=== PATIENT | female | born 1965 | race Caucasian/White ===

== ENCOUNTER 2019-10-24 12:26 | Outpatient (CLI) | payer BC, SELFPAY ==
--- NOTE | ~2019-10-24 | MMUS_ITS ---
EXAMINATION: MM diagnostic jaiden RT w deven, US breast RT limited HISTORY: Six-month follow-up for probably benign right breast masses TECHNIQUE: Craniocaudal, mediolateral, and mediolateral oblique 3-D tomosynthesis images of the right breast were performed and synthetic 2-D images were generated. Spot compression views are also obtai joellen. CAD analysis was submitted and interpreted. High resolution limited right breast ultrasound was performed. COMPARISON: 02/28/2019, 03/02/2018, 02/28/2018, 02/23/2018, 02/19/2017 BREAST PARENCHYMAL COMPOSITION: There are scattered areas of fibroglandular density. FINDINGS: MAMMOGRAPHIC FINDINGS: The previously described mass of the outer breast is no longer identified. There is no evidence of abreu spicious mass, calcification, or architectural distortion to suggest malignancy. There has been no suspicious interval change. ULTRASOUND: The previously described cyst at the 9:00 location six cm from the nipple has decreased in size, kamala uring 5 mm, and now contains internal debris. There is a stable 6 mm x 3 mm oval, circumscribed, para llel, hypoechoic mass with central echogenicity at the 9:00 location 4 cm from the nipple. A 3 mm rou nd, circumscribed, hypoechoic mass with posterior enhancement and no internal vascularity is seen at the 9:00 location 4 cm from the nipple which has slightly decreased in size. There is a 5 mm x 3 mm o shayne, circumscribed, parallel, hypoechoic mass with no posterior features or internal vascularity at t he 9:00 location 8 cm from the nipple. IMPRESSION: 1. Probably benign right breast masses. 2. Recommend 6 month follow-up right diagnostic mammogram and ultrasound. BI-RADS category 3, probably benign findings. Reviewed, dictated and finalized at location A. IMPRESSION: 1. Probably benign right breast masses. 2. Recommend 6 month follow-up right diagnostic mammogram and ultrasound. BI-RADS category 3, probably benign findings.
== END 2019-10-24 12:27 | disposition home or self-care (01) ==
LOC: ANHIMG 12:28
PROVIDERS: PCP Family Medicine; Visit Provider Obstetrics & Gynecology
DX: R92.8 Other abnormal and inconclusive findings on diagnostic imaging of breast (principal)
CPT/HCPCS: 76642; 77061; 77065; G0279

== ENCOUNTER 2020-03-22 08:55 | Outpatient (CLI) | payer BC, SELFPAY ==
--- NOTE | ~2020-03-22 | MM_ITS ---
EXAMINATION: MM screening jaiden BI w deven HISTORY: Screening TECHNIQUE: Craniocaudal and mediolateral oblique 3-D tomosynthesis images were obtained and synthetic 2-D images were generated. CAD analysis was submitted and interpreted. COMPARISON: Comparison to multiple prior studies sequentially, with oldest reviewed study dated 01/2017. BREAST PARENCHYMAL COMPOSITION: The breasts are heterogeneously dense, which may obscure small masses . FINDINGS: There is no evidence of suspicious mass, calcification, or architectural distortion to sugg est malignancy in either breast. There has been no suspicious interval change. IMPRESSION: 1. No mammographic evidence of malignancy. 2. Recommend routine screening mammography in one year. BI-RADS Category 1: Negative Reviewed, dictated and finalized at location A.
== END 2020-03-22 08:56 | disposition home or self-care (01) ==
LOC: ANHIMG 08:57
PROVIDERS: PCP Family Medicine; Visit Provider Obstetrics & Gynecology
DX: Z12.31 Encounter for screening mammogram for malignant neoplasm of breast (principal)
CPT/HCPCS: 77063; 77067

== ENCOUNTER 2021-03-24 07:40 | Outpatient (CLI) | payer BC, SELFPAY ==
--- NOTE | ~2021-03-24 | MM_ITS ---
EXAMINATION: MM screening jaiden BI w deven HISTORY: Screening TECHNIQUE: Craniocaudal and mediolateral oblique 3-D tomosynthesis images were obtained and synthetic 2-D images were generated. CAD analysis was submitted and interpreted. COMPARISON: Comparison to multiple prior studies sequentially, with oldest reviewed study dated 02/23. BREAST PARENCHYMAL COMPOSITION: The breasts are heterogenously dense, which may obscure small masses. FINDINGS: There are developing asymmetries in the mid outer aspect of the right breast and lower cent ral aspect of the left breast. There are punctate associated calcifications in the left breast asymme try. IMPRESSION: 1. Developing bilateral breast asymmetries and left breast calcifications. 2. Additional mammographic views and possible breast ultrasound are recommended. BI-RADS Category 0: Incomplete: Needs additional imaging evaluation. Reviewed, dictated and finalized at location A. IMPRESSION: 1. Developing bilateral breast asymmetries and left breast calcifications. 2. Additional mammographic views and possible breast ultrasound are recommended . BI-RADS Category 0: Incomplete: Needs additional imaging evaluation.
== END 2021-03-24 07:41 | disposition home or self-care (01) ==
LOC: ANHIMG 07:41
PROVIDERS: PCP Family Medicine; Visit Provider Obstetrics & Gynecology
DX: Z12.31 Encounter for screening mammogram for malignant neoplasm of breast (principal); R92.8 Other abnormal and inconclusive findings on diagnostic imaging of breast
CPT/HCPCS: 77063; 77067

== ENCOUNTER 2021-04-11 11:46 | Outpatient (CLI) | payer BC, SELFPAY ==
--- NOTE | ~2021-04-11 | MMUS_ITS ---
EXAMINATION: MM diagnostic jadien BI w deven, US breast BI complete HISTORY: Reality. Are there is an IV in the is a moderate right renal TECHNIQUE: Additional 3-D tomosynthesis images of both breasts were performed and synthetic 2-D image s were generated. Magnification views of left breast in multiple projections. CAD analysis was submit girish and interpreted. High resolution breast ultrasound was performed. COMPARISON: Serial mammographic examinations dating back to 01/23/2015 FINDINGS: MAMMOGRAPHIC FINDINGS: There is asymmetric density in the posterior lower mid left breast with some subtle indeterminate gra nular appearing microcalcifications. Stereotactic biopsy is recommended. There is somewhat nodular fibroglandular stroma both breasts which may obscure small masses. Bilatera l complete breast ultrasound examination was performed. ULTRASOUND: Right breast: 11:00 2 cm from nipple: 3.5 x 2.8 x 3.8 mm cyst 9:00 6 cm from nipple: Circumscribed oval 0.2 x 3.6 x 5.0 mm heterogeneous solid lesion without suspi cious shadowing, likely benign Left breast: 5.7 x 3.1 x 4.6 mm cyst IMPRESSION: 1. Indeterminate amorphous granular microcalcifications in the lower central left breast associated w ith some asymmetric soft tissue density. 2. Stereotactic biopsy of lower central left breast microcalcifications is recommended. BI-RADS category 4, suspicious findings. Dr. Wilson telephoned the report and left stereotactic biopsy recommendation on 04/11/2021 at [address] Benitez's medical assistant instructor Mishel's voicemail Reviewed, dictated and finalized at location A. IMPRESSION: 1. Indeterminate amorphous granular microcalcifications in the lower central le ft breast associated with some asymmetric soft tissue density. 2. Stereotactic biopsy of lower central left breast microcalcifications is sofía mmended. BI-RADS category 4, suspicious findings. Dr. Wilson telephoned the report and left stereotactic biopsy recommendation on at [address] Benitez's medical assistant instructor Mishel's voicemail
== END 2021-04-11 11:47 | disposition home or self-care (01) ==
LOC: ANHIMG 11:52
PROVIDERS: PCP Family Medicine; Visit Provider Obstetrics & Gynecology
DX: R92.8 Other abnormal and inconclusive findings on diagnostic imaging of breast (principal)
CPT/HCPCS: 76641; 77062; 77066; G0279

== ENCOUNTER 2021-05-01 10:49 | Outpatient (CLI) | payer BC, SELFPAY ==
--- NOTE | ~2021-05-01 | MM_ITS ---
MM consultation DATE: 05/01/2021 12:27 INDICATION: Requested stereotactic biopsy of subtle indeterminate granular microcalcifications, poste rior lower mid left breast FINDINGS: The patient was positioned on the stereotactic biopsy table and efforts were undertaken to attempt a stereotactic biopsy in mediolateral as well as caudal cranial projections. However, the mason rocalcifications were to posterior and superficial for access from either approach. The patient was informed that the examination was not technically possible due to position of the mason rocalcifications. The alternative of preoperative mammographic localization and surgical excision was discussed with the patient. IMPRESSION: Microcalcifications to posterior and superficial for stereotactic biopsy; consider surgic al excisional biopsy with preoperative mammographic localization Reviewed, dictated and finalized at Location A. Reviewed, dictated and finalized at location A. OLOGICAL PHYSIOTHERAPIST IMPRESSION: Microcalcifications to posterior and superficial for stereotactic b iopsy; consider surgical excisional biopsy with preoperative mammographic local ization
== END 2021-05-01 10:50 | disposition home or self-care (01) ==
PROVIDERS: PCP Family Medicine; Visit Provider Obstetrics & Gynecology
DX: R92.1 Mammographic calcification found on diagnostic imaging of breast (principal)
CPT/HCPCS: 99199

== ENCOUNTER 2021-08-15 09:04 | Outpatient (CLI) | payer OTHER, SELFPAY ==
--- NOTE | 2021-08-15 09:00 | ECG_ITS ---
Measurements Intervals Andrews Rate: 64 P: 58 TX: 175 QRS: 2 QRSD: 86 T: 40 QT: 394 QTc: 408 Interpretive Statements SINUS RHYTHM LOW VOLTAGE IN LIMB LEADS NONSPECIFIC T-WAVE ABNORMALITY ABNORMAL ECG NO PREVIOUS ECG AVAILABLE FOR COMPARISON Electronically Signed On 08-15-2021 10:37:21 ACCOUNT DIRECTOR by Francisco J Payan M.D.
== END 2021-08-15 09:05 | disposition home or self-care (01) ==
LOC: ANHSURGERY 09:09
PROVIDERS: PCP Family Medicine; Visit Provider Surgery Plastic and Reconstructive Surgery
DX: E78.5 Hyperlipidemia, unspecified (principal); Z01.818 Encounter for other preprocedural examination
CPT/HCPCS: 93005

== ENCOUNTER 2021-08-21 01:14 | Day surgery (SDC) | payer OTHER, SELFPAY ==
[2021-08-13 11:38] VITALS: BMI 24.3
--- NOTE | 2021-08-13 11:49 | PC.NURSE ---
Report to the Outpatient Waiting Room, entrance under the green pavilion located off [facility], at time 6:00 on date 08/21/21. OR Time: 7:30. - You and your visitor will be asked a series of questions to screen for COVID 19 for your protection. - A mask is required within the hospital. One visitor will be allowed to accompany the patient into the hospital. Patients visitor will be instructed to remain with patient at all times or leave the building. We will allow the visitor to come back to the postoperative area when patient is ready. Preoperative COVID Testing Requirements: TO BRING COPY OF CARD No COVID Test needed if: (proof is required; if not received patient will have Rapid Test prior to entry) - Patient has received COVID Vaccine at least 14 days prior to procedure date or - Patient has positive COVID test result within last 90 days of surgery date. COVID Test needed if above criteria is not met Patients may have clear liquids (water, carbonated beverages, clear teas, apple juice) until 3 hours prior to surgery (4:30) with a maximum of 20 ounces. - No food from midnight until time of surgery Take the following medications with a SIP of water the morning of surgery: NONE Medications to discontinue per physician: VITAMINS/SUPPLEMENTS Date to take last dose: 08/17/21 Please no make-up, nail algerian, hairspray, perfume, deodorant, or body powder the day of surgery. No jewelry (including any body piercings) or valuables the day of surgery, leave them at home. Please take a shower or bath the night before, or the morning of, surgery with an antibacterial soap. Wear comfortable, loose fitting clothing. - Jewelry must be removed prior to entering the operating room. Rings and piercings that are not removed may be cut off. - The hospital will not accept responsibility for valuables. - Please leave all valuables, including medications, at home the day of surgery. If you are going home after surgery, a licensed truss driver helper must drive you home. - NO public transportation without another adult. - We recommend that an adult stay with you for 24 hours following discharge. - We also recommend that you do not drive, make important decision, drink alcoholic beverages, or take any drugs that were not prescribed by your health care provider for at least 24 hours after your discharge time. Follow any additional instructions given to you from your surgeon. Telephone instructions given to FINN BAINS and asked if any additional questions and then verbalized understanding. Patient advised to call surgeon office or pre surgery nurse liaison [phone] if any additional questions.
--- NOTE | 2021-08-20 12:31 | WPDANESEPPF ---
Anes - Initial Pre Proc Eval Procedure: Operation Date: 08/21/21 07:30 Proposed Procedures p Bilateral Breast Augmentation - Leonard Roldan MD s Bilateral Breast Mastopexy - Leonard Roldan MD Date/Time: 08/20/21 12:31 Surgeon: Leonard Roldan MD Pre Op Diagnosis: micromastia, breast ptosis Patient Data Age: 55 Gender: F Height: 1.59 m Weight: 61.24 kg Allergies Allergy/AdvReac Type Severity Reaction Status Date / Time No Known Allergies Allergy Mild Verified 08/13/21 11:36 Home Medications Medication Instructions Recorded Confirmed Type multivitamin with minerals 1 tablet PO DAILY 12/08/19 08/21/21 History oxybutynin chloride 10 mg 10 mg PO DAILY 12/08/19 08/21/21 History tablet,extended release 24 hr omeprazole 20 mg capsule,delayed 20 mg PO DAILY PRN #90 cap 01/05/20 08/21/21 Rx release atorvastatin 10 mg tablet See Rx Instructions .ROUTE 02/20/21 08/21/21 Rx .COMPLEX #90 tablet topiramate 25 mg tablet See Rx Instructions .ROUTE 02/20/21 08/21/21 Rx .COMPLEX #180 tablet carisoprodol 350 mg tablet 350 mg PO TID PRN #21 tablet 07/28/21 08/21/21 Rx docusate sodium 100 mg capsule 100 mg PO DAILY #14 cap 07/28/21 08/21/21 Rx ondansetron HCl 4 mg tablet 4 mg PO Q8H #21 tablet 07/28/21 08/21/21 Rx oxycodone-acetaminophen 5 mg-325 1 tablet PO Q6H PRN #30 tablet 07/28/21 08/21/21 Rx mg tablet Patient hx anesthesia problems: none Family hx anesthesia problems: none Results Review: All pre-operative results and documents have been reviewed as part of the pre-operative evaluation. [facility] Past Medical History Medical History delivery delivered GERD (gastroesophageal reflux disease) Hyperlipidemia Hypothyroidism Smoker Surgical History Surgical History H/O: hysterectomy Hx of section Family History Family History Father Hypertension Family history of elevated blood lipids Mother Family history of elevated blood lipids Family history of Alzheimer's disease Grandparent Family history of malignant neoplasm Other No family history of malignant neoplasm Social History Social History Smoking packs per day: 1 Smoking cigarettes per day: 20.0 Years smoked: 10 Smoking pack-years: 10.00 Smoking status: Current some day smoker Tobacco type: cigarettes Smoking end date: 06/14/01 Alcohol intake: current Drinks per week: 6 Alcohol use details: ON WEEKENDS Substance use: never Substance use type: does not use Living arrangements: with family Spiritual care concerns: No Anes - Eval Final PreProcedure Day of Procedure 08/20/21 12:31 Patient weight: overweight Heart: regular rate and rhythm Lungs: clear to auscultation and normal air movement Airway: Mallampati scale class II Neurological: alert and oriented Last oral intake: >/= 8 hours ASA classification: II Emergent: no Anesthetic plan: proceed Anesthesia type and monitoring: general LMA Results Review: All pre-operative results and documents have been reviewed as part of the pre-operative evaluation. Informed Consent: The patient's anesthetic plan and its attendant risks and benefits were discussed with the patient/family/POA. Questions were solicited and answers provided to the satisfaction of the patient/family/POA.
[2021-08-21] VITALS (8 sets, daily range): BP systolic 109–131; BP diastolic 62–82; PULSE 62–98; RESP 10–22; TEMP 36.4; O2SAT 94–100
[2021-08-21] MEDS: LACTATED RINGERS 1,000 ML 30 ML IV CONT ×3 (06:20→10:31)
[2021-08-21 06:47] LABS: Urine Cotinine NEGATIVE
--- NOTE | 2021-08-21 07:16 | WPDHPUPDATE1 ---
History and Physical Update Update Date/Time: 08/21/21 07:16 History and Physical has been reviewed, including an updated exam of the patient. There are NO changes in the patient's condition. Risks, benefits, and alternatives have been discussed and questions answered. Patient agrees to proceed with procedure.
--- NOTE | 2021-08-21 07:16 | W.PM.PROC2 ---
Procedure Note - Detailed Date of Procedure 08/21/21 Pre-op Diagnosis micromastia, breast ptosis Post-op Diagnosis Same Procedure Performed Bilateral augmentation mastopexy Surgeon Leonard Roldan MD Anesthesia General Findings Inverted T Superior Pedicle Bilateral Grisel Mccarthy SoftTouch 415cc Right REF# [id number] SN [id number] Left REF# [id number] SN [id number] Description of Procedure She is here today for bilateral breast augmentation mastopexy. Previously and again today the risks, benefits, alternatives were discussed in extensive detail. I wanted her to be very realistic about the risks involved as well as expectations. We discussed aftercare and what to monitor for. Made sure answered all of her questions to her satisfaction today and consent was obtained. Marked in the preoperative holding area with their verification. The patient was taken to the operating room placed supine on the operating table. Anesthesia was provided by anesthesiology. A surgical time-out was taken. We cleansed the skin and 1% lidocaine and 0.25% Marcaine with epinephrine was used anesthetize as a field block. She was prepped and draped in a standard sterile fashion. Tegaderm nipple Pope were placed. A 15 blade used to make an incision just superior to the inframammary fold leaving a cusp of de-epithelized tissue at the t junction. Dissection was continued until the chest wall as identified. I incised the pectoralis major along its inferior border and completely released the inferior border leaving the medial border intact. I created a subpectoral pocket in the appropriate dimensions based on our preoperative planning for the implant. I then copiously irrigated with saline solution and verified a strict hemostasis. Next the use a triple antibiotic and Betadine containing solution to irrigate the pocket. I washed my gloves with the triple antibiotic and Betadine solution. We washed the implant immediately upon opening it with this solution and only opened it when we needed it. I used implant funnel and no-touch technique. The implant was introduced into the pocket using the funnel. Having verified positioning of the implant this was closed using 2-0 Vicryl. I tailor tacked the breast into position. Placed her in a sitting position. Verified the nipple-areolar location based on preoperative planning as well as intraoperative observations and measurements in full agreement. She was placed supine. I de-epithelialized the pedicle. I then removed the inferior central portion of the breast need making sure the implant was well protected. I elevated medial and lateral tissue flaps as well for planned closure. I closed along the IMF with 2-0 Stratafix. Along the vertical with 2-0 PDS. I closed around the Manav with 3-0 strata fix. 3-0 Monocryl along the vertical. 3-0 Stratafix along the IMF. I finally closed everything with running subcuticular 4-0 Monocryl and tissue glue. Fluffs and surgical bra were placed. Estimated Blood Loss 30 Drains No Packing No Pathology None sent Complications No immediate complications Condition Stable Disposition PACU
[2021-08-21] MEDS: TRANEXAMIC ACID 1,000MG/ISO100 1,000 MG/100 ML BAG 200 MG IVPB (07:30)
[2021-08-21] MEDS: LIDO 1%/EPINEPHRINE 1:100,000 50 ML VIAL 30 ML INFILTRATE (07:39)
[2021-08-21] MEDS: BUPIVACAINE HCL 0.25% PF 30 ML VIAL INFILTRATE (07:39)
[2021-08-21] MEDS: ceFAZolin 2 GM/D5W 50 ML 2 GM/50 ML BAG IVPB (07:40)
--- NOTE | 2021-08-21 08:38 | SUR.OPER ---
IMPLANTS FROM 'S OFFICE STOCK [facility] SoftTouch Breast Implant Smooth Round Full Profile LEFT: SSF-[id number] EXP: 10-14-2025 SN: [id number] RIGHT: [id number] EXP: 05-21-2026 SN: [id number]
--- NOTE | 2021-08-21 10:18 | SUR.PHASEI ---
1018: simple mask removed.
[2021-08-21] MEDS: fentaNYL CITRATE INJ (*CRX) 100 MCG/2 ML VIAL 25 MCG IV PUSH ×3 (10:31→10:59)
== END 2021-08-21 12:08 | disposition home or self-care (01) ==
PROVIDERS: PCP Family Medicine; Visit Provider Surgery Plastic and Reconstructive Surgery
PROC: (CPT 19316; principal; 2021-08-21 07:30)
PROC: (CPT 19316; 2021-08-21 07:30)
DX: Z41.1 Encounter for cosmetic surgery (principal); N64.82 Hypoplasia of breast; N64.81 Ptosis of breast; K21.9 Gastro-esophageal reflux disease without esophagitis; E78.5 Hyperlipidemia, unspecified; E03.9 Hypothyroidism, unspecified; Z87.891 Personal history of nicotine dependence
CPT/HCPCS: 19316; 19325; 80307; J0171; J0690; J1100; J1170; J1580; J2250; J2405; J2704; J3010; J7120

== ENCOUNTER → 2023-02-02 10:02 | Outpatient (CLI) | payer BC, SELFPAY ==
--- NOTE | ~2023-02-02 | XR_ITS ---
EXAMINATION: XR chest 2V DATE: 02/02/2023 10:13 INDICATION: Cough and shortness of breath TECHNIQUE: PA and lateral views of the chest are obtained. COMPARISON: None available FINDINGS: The lungs are free of acute opacities. No pleural effusion or pneumothorax. The cardiomedia stinal silhouette is normal. There is mild thoracic spondylosis. Bilateral breast implants are noted. IMPRESSION: 1. No acute cardiopulmonary abnormality. Reviewed, dictated and finalized at location A.
== END ==
PROVIDERS: PCP Physician Assistant; Visit Provider Physician Assistant
DX: R05.9 Cough, unspecified (principal); R06.02 Shortness of breath
CPT/HCPCS: 71046